=== PATIENT | female | born 1990 | race Two or more races ===

== ENCOUNTER 2018-01-06 20:57 | Inpatient (IN) | payer OTHER ==
[~2018-01-06] VITALS: Ht 170.2 cm; Wt 80.3 kg
[2018-01-06 21:15] VITALS: BP 121/75
[2018-01-06 22:04] LABS: BASOPHIL (%) 0.2 % (0-1); EOSINOPHIL (%) 0.7 % (0-5); EOSINOPHIL COUNT 0.1 K/uL (0-0.3); HEMATOCRIT 36.5 % (36.0-46.0); HEMOGLOBIN 12.3 G/DL (11.9-15.5); IMMATURE GRANULOCYTE (%) 0.7 % (0.0-0.7); LYMPHOCYTE (%) 16.8 % (15-42); LYMPHOCYTE COUNT 2.6 K/uL (1.0-2.8); MCH 30.5 PG (29.0-34.0); MCHC 33.7 G/DL (30.0-36.0); MCV 90.6 FL (83-99); MONOCYTE (%) 6.5 % (3-12); NEUTROPHIL (%) 75.1 % (45-76); NEUTROPHIL COUNT 11.4 K/uL (1.8-6.4); PLATELET COUNT 286 K/uL (156-360); RBC DIS.WIDTH-CV 13.7 % (11.8-14.6); RBC DIS.WIDTH-SD 45.6 % (39-53); RED BLOOD COUNT 4.03 M/uL (3.80-5.20); WHITE BLOOD COUNT 15.2 K/uL (4.1-10.2)
[2018-01-06 22:11] VITALS: BP 109/63
[2018-01-06] MEDS ORDERED: PRENATAL TABLE1 EAC3 PO (22:43)
[2018-01-06 23:01] VITALS: BP 109/67
[2018-01-06 23:30] VITALS: BP 112/71
[2018-01-07] VITALS (14 sets, daily range): BP systolic 98–118; BP diastolic 54–72
[2018-01-07] MEDS ORDERED: IBUPROFEN800 MG PO (05:40)
[2018-01-08 16:08] VITALS: BP 106/60
[2018-01-08 23:23] VITALS: BP 109/57
== END 2018-01-09 15:15 | disposition home or self-care (01) | DRG 775 ==
LOC: LDRP-OP 20:57 → 2WEST 20:59
PROVIDERS: Midwife
PROC: 10E0XZZ Delivery of Products of Conception, External Approach (ICD-10-PCS; principal; 2018-01-07)
DX: O70.0 First degree perineal laceration during delivery (principal); O99.824 Streptococcus B carrier state complicating childbirth; O77.0 Labor and delivery complicated by meconium in amniotic fluid; O99.02 Anemia complicating childbirth; D50.9 Iron deficiency anemia, unspecified; Z3A.39 39 weeks gestation of pregnancy; Z37.0 Single live birth
CPT/HCPCS: 85025; G0378; J0595; J2540; J7120